=== PATIENT | female | born 1980 | race Caucasian/White ===

== ENCOUNTER 2019-05-02 15:40 | Outpatient (CLI) | payer OTHER ==
[~2019-05-02] VITALS: Ht 167.6 cm; Wt 86.2 kg
[2019-05-02] MEDS ORDERED: albuterol 2.5 MG/3 ML nebule NEB PRN (16:20)
== END 2019-05-02 23:59 | disposition home or self-care (01) ==
LOC: RT 15:40
PROVIDERS: ATTEND Orthopaedic Surgery
DX: J45.998 Other asthma (principal)
CPT/HCPCS: 94060; 94760